=== PATIENT | female | born 1945 ===

== ENCOUNTER 2018-07-16 07:34 | Outpatient (CLI) | payer MEDICARE, OTHER | END 2018-07-16 07:35 | disposition home or self-care (01) | LOC: C.MAMMO 07:34 ==

== ENCOUNTER 2018-08-03 09:54 | Outpatient (CLI) | payer MEDICARE | END 2018-08-03 09:55 | disposition home or self-care (01) | LOC: C.DEXAIC 09:55 | DX: M81.0 Age-related osteoporosis without current pathological fracture (principal) ==